=== PATIENT | female | born 1955 | race Caucasian/White ===

== ENCOUNTER 2018-04-30 12:10 | Emergency (ER) | payer OTHER ==
[2018-04-30 12:26] VITALS: BP 132/74; PULSE 78; RESP 18; TEMP 97.6; O2SAT 97
--- NOTE | 2018-04-30 13:09 | C.PDOC ---
History Of Present Illness 63 y/o female presents to ED complaining of right-sided lower back pain that radiates to her right thigh. Patient notes that she had similar episode many years ago and was diagnosed with sciatica. Denies trauma, urinary or bowel incontinence, changes in sensation, abdominal pain, or symptoms. Patient took motrin for pain this morning. Time Seen by Provider: 04/30/18 13:06 Chief Complaint (Nursing): Back Pain History Per: Patient History/Exam Limitations: no limitations Onset/Duration Of Symptoms: Days Current Symptoms Are (Timing): Still Present Past Medical History Reviewed: Historical Data, Nursing Documentation, Vital Signs Vital Signs: Last Vital Signs Temp 97.6 F 04/30/18 12:22 Pulse 78 04/30/18 12:22 Resp 18 04/30/18 12:22 BP 132/74 04/30/18 12:22 Pulse Ox 97 04/30/18 12:22 Family History: States: No Known Family Hx - Social History Hx Alcohol Use: No Hx Substance Use: No Review Of Systems Except As Marked, All Systems Reviewed And Found Negative. Constitutional: Negative for: Fever, Chills Gastrointestinal: Negative for: Abdominal Pain, Constipation Genitourinary: Negative for: Dysuria, Incontinence Musculoskeletal: Positive for: Back Pain (right lower back pain that radiates to her R thigh\) Neurological: Negative for: Weakness, Numbness Physical Exam - Physical Exam Appears: Non-toxic, In Acute Distress (painful) Skin: Normal Color, Warm, Dry Head: Atraumatic, Normacephalic Eye(s): bilateral: Normal Inspection, EOMI Oral Mucosa: Moist Chest: Symmetrical Cardiovascular: Rhythm Regular Respiratory: Normal Breath Sounds, No Rales, No Rhonchi, No Wheezing Gastrointestinal/Abdominal: Soft, No Tenderness Back: No CVA Tenderness, No Vertebral Tenderness, Paraspinal Tenderness ((+) right parasacral/ buttock tenderness) Extremity: Tenderness (right thigh), No Calf Tenderness, No Deformity, No Swelling Extremity: Bilateral: Normal Color And Temperature, Normal ROM Neurological/Psych: Oriented x3, Normal Speech, Normal Sensation ED Course And Treatment O2 Sat by Pulse Oximetry: 97 (RA) Pulse Ox Interpretation: Normal Progress Note: Toradol and flexeril administered. Offered XR, pt declined. On reassessment, patient is resting comfortably, with improvement of back pain. Patient remains afebrile, with no bony tenderness, extremity numbness or weakness, or abdominal pain. Patient is ambulatory in the emergency department w ith no signs of discomfort. Patient was advised to follow up with physician/clinic in 1-2 days. Disposition - Disposition Disposition: HOME/ ROUTINE Disposition Time: 14:08 Condition: STABLE Additional Instructions: Follow up with your primary doctor on Wednesday. Return to ER if symptoms persist or worsen. Prescriptions: Cyclobenzaprine [Cyclobenzaprine HCl] 10 mg PO BID PRN #14 tab PRN Reason: Muscle Spasm Lidocaine 5% [Lidoderm] 1 patch TOP DAILY PRN #5 patch PRN Reason: Pain, Moderate (4-7) Naproxen [Naprosyn] 1 tab PO BID PRN #20 tab PRN Reason: Pain Instructions: Low Back Pain (DC) Forms: [facility] (E[place]ian), Work Excuse - Clinical Impression Clinical Impression: Low back pain - PA / RENAL TECHNICIAN / Resident Statement MD/DO has reviewed & agrees with the documentation as recorded. - Scribe Statement The provider has reviewed the documentation as recorded by the Scribfranny Henderson All medical record entries made by the Brenden were at my direction and personally dictated by me. I have reviewed the chart and agree that the record accurately reflects my personal performance of the history, physical exam, medical decision making, and the department course for this patient. I have also personally directed, reviewed, and agree with the discharge instructions and disposition.
== END 2018-04-30 14:18 | disposition home or self-care (01) ==
LOC: C.ER 12:10
DX: M54.5 Low back pain (principal)
CPT/HCPCS: 96372; 99283; J1885